=== PATIENT | male | born 1950 ===

== ENCOUNTER 2016-07-24 09:54 | Day surgery (SDC) | payer MEDICARE ==
[2016-07-24 10:39] VITALS: BMI 28.5
[2016-07-24] MEDS ORDERED: Lactated Ringer's 500 ML IV ONE (11:39)
[2016-07-24] MEDS ORDERED: Propofol 10 mg/ml Inj (20 ML) ONE (11:46)
[2016-07-24] MEDS ORDERED: Lidocaine Hydrochloride 5 ML INJ ONE (11:46)
--- NOTE | 2016-07-24 11:49 | CP.SDSHP ---
Same Day Surgery H & P - History Proposed Procedure: Colonoscopy Pre-Op Diagnosis: Colon cancer screening - Previous Medical/Surgical History Comments: None Previous Surgical History: Hernia repair - Allergies Allergies: Allergies No Known Allergies Allergy (Verified 07/24/16 10:39) - Current Medications Current Medications: None - Physical Exam General Appearance: wdwn nad Vital Signs: per RN notes, reviewed Mental Status: Alert & Oriented x3 Heart: WNL Lungs: WNL GI: WNL - {Optional Preform as Required} Abdomen: WNL - Impression Impression: Colon cancer screening average risk Pt. Evaluated Today:Candidate for Anesthesia & Procedure: Yes - Date & Time Date: 07/24/16 Time: 11:48 Short Stay Discharge - Short Stay Discharge Admitting Diagnosis/Reason for Visit: SCREENING FOR MALIGNANT MICKY OF COLON Disposition: HOME/ ROUTINE
[2016-07-24 16:20] VITALS: BP 115/73; PULSE 72; RESP 18; TEMP 97.3; O2SAT 98
== END 2016-07-24 13:24 | disposition home or self-care (01) ==
LOC: C.ENDO 09:54
PROVIDERS: ATTEND Internal Medicine Gastroenterology
DX: Z12.11 Encounter for screening for malignant neoplasm of colon (principal); K57.30 Diverticulosis of large intestine without perforation or abscess without bleeding; K64.0 First degree hemorrhoids
CPT/HCPCS: G0121; J2704; J7120